=== PATIENT | male | born 1995 | race African-American/Black ===

== ENCOUNTER 2017-08-01 21:31 | Emergency (ER) | payer MEDICAID ==
[~2017-08-01] VITALS: Ht 175.3 cm; Wt 70.0 kg
[2017-08-02] MEDS ORDERED: ACETAMINOPHEN 500MG TABLET PO ONE (01:45)
[2017-08-02] MEDS ORDERED: IBUPROFEN 400MG TABLET PO ONE (01:45)
[2017-08-02] MEDS ORDERED: ACETAMINOPHEN 500MG TABLET ONE (02:01)
[2017-08-02] MEDS ORDERED: IBUPROFEN 400MG TABLET ONE (02:11)
[2017-08-02 02:45] VITALS: BP 121/69
== END 2017-08-02 03:30 | disposition home or self-care (01) ==
LOC: ER 21:31
DX: S93.401A Sprain of unspecified ligament of right ankle, initial encounter (principal); F12.10 Cannabis abuse, uncomplicated; F17.200 Nicotine dependence, unspecified, uncomplicated; V00.131A Fall from skateboard, initial encounter; Y93.51 Activity, roller skating (inline) and skateboarding; Y92.89 Other specified places as the place of occurrence of the external cause; Y99.8 Other external cause status
CPT/HCPCS: 73610; 99284; Z7610

== ENCOUNTER 2023-12-08 09:58 | Emergency (ER) | payer MEDICAID, OTHER ==
[~2023-12-08] VITALS: Ht 172.7 cm; Wt 77.0 kg
[2023-12-08 10:02] VITALS: TEMP 98.9; O2SAT 100
[2023-12-08 10:56] VITALS: BP 130/83; PULSE 100; RESP 16
[2023-12-08] MEDS: KETOROLAC 15MG/ML VIAL IM ONE (10:56)
[2023-12-08 12:55] LABS: CLARITY URINE CLOUDY (CLEAR); COLOR URINE DARK YELLOW (YELLOW); GLUCOSE URINE NEGATIVE (NEGATIVE); KETONES URINE 2+ (NEGATIVE); LEUKOCYTE ESTERASE URINE NEGATIVE (NEGATIVE); NITRITE URINE NEGATIVE (NEGATIVE); OCCULT BLOOD URINE NEGATIVE (NEGATIVE); PROTEIN URINE 1+ (NEGATIVE); SPECIFIC GRAVITY URINE 1.033 (1.005-1.030)
[2023-12-08] MEDS ORDERED: NAPR-1176 MT (13:07)
[2023-12-08] MEDS ORDERED: LIDO700A15 TP (13:07)
[2023-12-08 13:27] LABS: AMORPHOUS SEDIMENT URINE 2+ /lpf
[2023-12-08 13:32] LABS: BACTERIA URINE 2+; MUCUS URINE 2+ /lpf (NONE/TRACE); SQUAMOUS EPITHELIAL CELL URINE RARE /lpf (RARE/1+)
[2023-12-08 13:33] LABS: RBC URINE 0-2 /hpf (0-2); WBC URINE 0-2 /hpf (0-2)
[2023-12-11 06:07] LABS: CHLAMYDIA TRACHOMATIS NAA Negative (Negative); NEISSERIA GONORRHOEAE NAA Negative (Negative)
== END 2023-12-08 13:28 | disposition home or self-care (01) ==
LOC: ER 10:14
DX: S76.912A Strain of unspecified muscles, fascia and tendons at thigh level, left thigh, initial encounter (principal); X58.XXXA Exposure to other specified factors, initial encounter; Y93.89 Activity, other specified; Y92.89 Other specified places as the place of occurrence of the external cause; Y99.8 Other external cause status
CPT/HCPCS: 99285; 93976; 87491; 87591; 81003; 76870; 96372; J1885

== ENCOUNTER 2024-02-22 12:28 | Emergency (ER) | payer OTHER ==
[~2024-02-22] VITALS: Ht 177.8 cm; Wt 79.0 kg
[~2024-02-22 12:28] MED LIST: LIDO700A15 TP; NAPR-1176 MT
[2024-02-22 12:30] VITALS: BP 141/88; PULSE 76; RESP 18; TEMP 98.4; O2SAT 97
[2024-02-22 14:22] LABS: CARBON DIOXIDE 26 mEq/L (21-32); CHLORIDE 111 mEq/L (98-107); POTASSIUM 4.2 mEq/L (3.5-5.1); SODIUM 143 mEq/L (136-145)
[2024-02-22 14:23] LABS: CALCIUM 10.1 mg/dL (8.7-10.4)
[2024-02-22 14:25] LABS: BASOPHILS % 0.4 % (0.0-2.0); EOSINOPHILS % 0.5 % (0.0-5.0); HEMATOCRIT. 40.3 % (42.0-52.0); HEMOGLOBIN. 13.2 g/dL (14.0-18.0); LYMPHOCYTES % 31.7 % (20.0-50.0); MEAN CORPUSCULAR HEMOGLOBIN 28.7 pg (28.0-32.0); MEAN CORPUSCULAR HGB CONC 32.7 g/dL (31.0-37.0); MEAN CORPUSCULAR VOLUME 87.7 fL (80.0-94.0); MEAN PLATELET VOLUME 8.4 fl (7.4-10.4); MONOCYTES % 6.5 % (2.0-8.0); NEUTROPHILS % 60.9 % (40.0-76.0); PLATELET 228 x1000/uL (130-400); RED CELL DISTRIBUTION WIDTH 17.8 % (11.6-14.6); WHITE BLOOD COUNT 4.4 x1000/uL (4.5-11.0)
[2024-02-22 14:28] LABS: GLUCOSE 87 mg/dL (70-105); UREA NITROGEN BLOOD 8 mg/dL (9-23)
[2024-02-22 14:29] LABS: ALANINE AMINOTRANSFERASE 23 IU/L (10-49); ALBUMIN 4.7 g/dL (3.2-4.8); ASPARTATE AMINOTRANSFERASE 27 IU/L (<34)
[2024-02-22 14:30] LABS: BILIRUBIN TOTAL 0.4 mg/dL (0.1-1.0)
[2024-02-22] MEDS: KETOROLAC 30MG/ML VIAL IV STA (14:44)
[2024-02-22] MEDS ORDERED: AMOX1TAB16 MT (17:37)
[2024-02-22] MEDS ORDERED: IBUP-2029 MT (17:37)
[2024-02-22] MEDS ORDERED: IOHEXOL-300 100 ML BOTTLE ONE (23:23)
== END 2024-02-22 18:43 | disposition home or self-care (01) ==
LOC: ER 12:52
DX: K62.89 Other specified diseases of anus and rectum (principal); F12.90 Cannabis use, unspecified, uncomplicated; W06.XXXA Fall from bed, initial encounter; Y93.89 Activity, other specified; Y92.89 Other specified places as the place of occurrence of the external cause; Y99.8 Other external cause status; Z79.1 Long term (current) use of non-steroidal anti-inflammatories (NSAID)
CPT/HCPCS: 80053; 85025; 36415; 74177; 96374; 99285; Q9967; J1885; Z7610

== ENCOUNTER 2024-03-12 02:10 | Emergency (ER) | payer OTHER ==
[~2024-03-12] VITALS: Ht 182.9 cm; Wt 78.0 kg
[~2024-03-12 02:10] MED LIST changes: +AMOX1TAB16 MT; +IBUP-2029 MT
[2024-03-12 02:21] VITALS: TEMP 98.7; O2SAT 99
[2024-03-12] MEDS ORDERED: HYDR-4001 MT (02:34)
[2024-03-12] MEDS ORDERED: IBUP-2029 MT (02:34)
[2024-03-12 02:52] VITALS: BP 130/94; PULSE 93; RESP 16
[2024-03-12] MEDS: HYDROCODONE/ACETAMINOPHEN 5/325MG TABLET PO ONE (02:52)
== END 2024-03-12 02:53 | disposition home or self-care (01) ==
LOC: ER 02:22
DX: K61.1 Rectal abscess (principal); F12.90 Cannabis use, unspecified, uncomplicated; Z76.0 Encounter for issue of repeat prescription; Z79.899 Other long term (current) drug therapy
CPT/HCPCS: 99283

== ENCOUNTER 2024-03-17 08:01 | Emergency (ER) | payer OTHER ==
[~2024-03-17] VITALS: Ht 177.8 cm; Wt 70.0 kg
[~2024-03-17 08:01] MED LIST changes: +HYDR-4001 MT
[2024-03-17 08:03] VITALS: O2SAT 100
[2024-03-17 08:38] LABS: BASOPHILS % 0.6 % (0.0-2.0); EOSINOPHILS % 0.9 % (0.0-5.0); HEMATOCRIT. 38.3 % (42.0-52.0); HEMOGLOBIN. 12.6 g/dL (14.0-18.0); MEAN CORPUSCULAR HEMOGLOBIN 28.9 pg (28.0-32.0); MEAN CORPUSCULAR HGB CONC 32.8 g/dL (31.0-37.0); MEAN PLATELET VOLUME 8.3 fl (7.4-10.4); MONOCYTES % 8.3 % (2.0-8.0); NEUTROPHILS % 48.2 % (40.0-76.0); PLATELET 282 x1000/uL (130-400); RED BLOOD CELL COUNT 4.35 mill/uL (4.7-6.1); RED CELL DISTRIBUTION WIDTH 16.9 % (11.6-14.6); WHITE BLOOD COUNT 3.4 x1000/uL (4.5-11.0)
[2024-03-17 08:46] LABS: CALCIUM 9.4 mg/dL (8.7-10.4); CARBON DIOXIDE 25 mEq/L (21-32); CHLORIDE 112 mEq/L (98-107); SODIUM 142 mEq/L (136-145)
[2024-03-17 08:51] LABS: CREATININE 1.1 mg/dL (0.6-1.3)
[2024-03-17 08:52] LABS: GLUCOSE 90 mg/dL (70-105); UREA NITROGEN BLOOD 8 mg/dL (9-23)
[2024-03-17] MEDS: MORPHINE SULFATE 4 MG/ML INJ (FOR IV/IM USE) IV STA (08:54)
[2024-03-17] MEDS ORDERED: ACET-2708 PO (10:29)
[2024-03-17 10:48] VITALS: BP 145/73; PULSE 58; RESP 18; TEMP 36.9; O2SAT 100
== END 2024-03-17 10:51 | disposition home or self-care (01) ==
LOC: ER 08:14
DX: R10.2 Pelvic and perineal pain (principal); F41.9 Anxiety disorder, unspecified; F32.A Depression, unspecified; F12.90 Cannabis use, unspecified, uncomplicated; Z79.899 Other long term (current) drug therapy
CPT/HCPCS: 99283; 96374; 80048; 85025; 36415; J2270

== ENCOUNTER 2024-06-11 21:41 | Emergency (ER) | payer OTHER ==
[~2024-06-11] VITALS: Ht 182.9 cm; Wt 91.0 kg
[~2024-06-11 21:41] MED LIST changes: +ACET-2708 PO
[2024-06-11 21:47] VITALS: O2SAT 99
[2024-06-11] MEDS: KETOROLAC 30MG/ML VIAL IM STA (22:41)
[2024-06-11 23:37] LABS: BASOPHILS % 1.5 % (0.0-2.0); EOSINOPHILS % 1.9 % (0.0-5.0); HEMATOCRIT. 37.1 % (42.0-52.0); HEMOGLOBIN. 12.6 g/dL (14.0-18.0); MEAN CORPUSCULAR HEMOGLOBIN 29.5 pg (28.0-32.0); MEAN CORPUSCULAR HGB CONC 33.8 g/dL (31.0-37.0); MEAN CORPUSCULAR VOLUME 87.2 fL (80.0-94.0); MEAN PLATELET VOLUME 8.3 fl (7.4-10.4); MONOCYTES % 7.8 % (2.0-8.0); NEUTROPHILS % 44.8 % (40.0-76.0); PLATELET 208 x1000/uL (130-400); RED BLOOD CELL COUNT 4.25 mill/uL (4.7-6.1); RED CELL DISTRIBUTION WIDTH 14.6 % (11.6-14.6); WHITE BLOOD COUNT 4.4 x1000/uL (4.5-11.0)
[2024-06-11 23:43] LABS: CHLORIDE 107 mEq/L (98-107); POTASSIUM 3.5 mEq/L (3.5-5.1); SODIUM 140 mEq/L (136-145)
[2024-06-11 23:44] LABS: CARBON DIOXIDE 27 mEq/L (21-32)
[2024-06-11 23:45] LABS: CALCIUM 9.2 mg/dL (8.7-10.4)
[2024-06-11 23:49] LABS: CREATININE 1.1 mg/dL (0.6-1.3); GLUCOSE 97 mg/dL (70-105); UREA NITROGEN BLOOD 14 mg/dL (9-23)
[2024-06-12] MEDS: ONDANSETRON HCL 4MG/2ML INJ IV STA (00:29)
[2024-06-12] MEDS: MORPHINE SULFATE 4 MG/ML INJ (FOR IV/IM USE) IV STA (00:29)
[2024-06-12] MEDS: SODIUM CHLORIDE 0.9% 1,000 ML IV ONE (00:29)
[2024-06-12] MEDS ORDERED: ACET-2708 MT (02:00)
[2024-06-12 02:20] VITALS: BP 136/81; PULSE 76; RESP 16; TEMP 37.1; O2SAT 99
[2024-06-12] MEDS ORDERED: IOHEXOL-300 100 ML BOTTLE ONE (22:09)
== END 2024-06-12 02:22 | disposition home or self-care (01) ==
LOC: ER 21:41
DX: K60.30 Anal fistula, unspecified (principal); F41.9 Anxiety disorder, unspecified; F32.A Depression, unspecified; F12.90 Cannabis use, unspecified, uncomplicated; Z79.899 Other long term (current) drug therapy; Z79.1 Long term (current) use of non-steroidal anti-inflammatories (NSAID)
CPT/HCPCS: 99285; 74177; 80048; 83605; 85025; 87040; 36415; 96372; 96374; 96361; 96375; J1885; J7030; Q9967; J2405; J2270